=== PATIENT | female | born 2000 | race African-American/Black ===

== ENCOUNTER 2018-05-30 12:31 | Emergency (ER) | payer MEDICAID ==
[~2018-05-30] VITALS: Ht 157.5 cm; Wt 47.3 kg
[2018-05-30 21:50] VITALS: BP 107/74
== END 2018-05-30 21:50 | disposition home or self-care (01) ==
LOC: ER 12:31
DX: J06.9 Acute upper respiratory infection, unspecified (principal); R63.4 Abnormal weight loss; F17.200 Nicotine dependence, unspecified, uncomplicated; F12.10 Cannabis abuse, uncomplicated
CPT/HCPCS: 86703; 99283

== ENCOUNTER 2019-10-03 11:38 | Emergency (ER) | payer MEDICAID ==
[~2019-10-03] VITALS: Ht 160 cm; Wt 45.0 kg
[2019-10-03] MEDS ORDERED: IBUPROFEN 600MG TABLET PO ONE (16:15)
[2019-10-03 16:30] VITALS: BP 108/62
== END 2019-10-03 16:34 | disposition home or self-care (01) ==
LOC: ER 11:38
DX: M94.0 Chondrocostal junction syndrome [Tietze] (principal); F41.9 Anxiety disorder, unspecified
CPT/HCPCS: 71045; 81025; 93005; 99285